=== PATIENT | female | born 1950 | race Caucasian/White ===

== ENCOUNTER 2018-01-11 18:01 | Emergency (ER) | payer OTHER ==
[2018-01-11 18:06] VITALS: RESP 18
--- NOTE | 2018-01-11 18:44 | EDPHY ---
H & P Stated Complaint: NEURO/MEMORY DEFICITS SINCE SOMETIME BETWEEN 11-1330 Time Seen by Provider: 01/11/18 18:22 HPI/ROS: CHIEF COMPLAINT: Amnesia HISTORY OF PRESENT ILLNESS: The patient presents to the ED with the development of acute amnesia. She denies any associated acute headache, history of trauma, neck pain, numbness, weakness or difficulty with walking. The patient is accompanied by her who reports she has short-term memory loss over the events of the past 2-3 days and continues to have repetitive questioning. There has been no history of a recent illness, fall, stressful event or other precipitating situation according to her . The patient reports she has remote history of ocular migraines. She denies any vision loss currently. She denies any acute medical complaints. REVIEW OF SYSTEMS: A comprehensive 10 point review of systems is otherwise negative aside from elements mentioned in the history of present illness. Source: Patient, Family - Personal History Current Tetanus/Diphtheria Vaccine: Yes - Medical/Surgical History Hx Asthma: No Hx Chronic Respiratory Disease: No Hx Diabetes: No Hx Cardiac Disease: No Hx Renal Disease: No Hx Cirrhosis: No Hx Alcoholism: No Hx HIV/AIDS: No Hx Splenectomy or Spleen Trauma: No Other PMH: DENIES - Social History Smoking Status: Former smoker - Physical Exam Exam: General Appearance: Alert, no distress Eyes: Pupils equal and round no pallor or injection ENT, Mouth: Mucous membranes moist Respiratory: There are no retractions, lungs are clear to auscultation Cardiovascular: Regular rate and rhythm Gastrointestinal: Abdomen is soft and nontender, no masses, bowel sounds normal Neurological: A&O, normal motor function, normal sensory exam, normal cranial nerves, patient is unable to recall 3 objects after 2 min. She presents with symptoms consistent with TGA Skin: Warm and dry, no rashes Musculoskeletal: Neck is supple nontender Extremities: symmetrical, full range of motion Psychiatric: Patient is oriented X 3, there is no agitation Constitutional: Initial Vital Signs Temperature (C) 36.5 C 01/11/18 18:04 Heart Rate 66 01/11/18 18:04 Respiratory Rate 18 01/11/18 18:04 Blood Pressure 184/61 H 01/11/18 18:04 O2 Sat (%) 92 01/11/18 18:04 O2 Delivery Mode Room Air Allergies/Adverse Reactions: No Known Allergies Allergy (Unverified 01/11/18 18:04) Home Medications: Medication Instructions Recorded NK [No Known Home Meds] 01/11/18 Medical Decision Making - Diagnostics Imaging Results: Imaging Impressions Brain MRI 01/11/18 18:40 Impression: Mild atrophy and probable small vessel ischemic disease are noted. Nothing acute is identified. Results called and discussed with Foster Arboleda M.D. on 01/11/2018 at 20:06 ED Course/Re-evaluation: The patient presents to the ED with a clinical presentation consistent with transient global amnesia. Given her age in MRI of the brain was ordered which demonstrates no evidence of stroke or obvious other significant intracranial abnormality. The patient did undergo serial examinations in the ED. She continues to have a nonfocal neurologic examination aside from her ongoing amnesia. Her can safely observed the patient. They will be discharged home with customary aftercare instructions and return precautions. Ther are given the contact number of our on-call neurologist. Differential Diagnosis: Differential diagnosis considered includes transient global amnesia, migraine, stroke, MACHINE MOLDER SQUEEZE tumor - Data Points Laboratory Results: Laboratory Results 01/11/18 19:54 01/11/18 19:04 01/11/18 01/11/18 01/11/18 19:54 19:04 19:04 WBC 9.32 10^3/uL 10^3/uL REJ (3.80-9.50) RBC 4.94 10^6/uL 10^6/uL TNP (4.18-5.33) Hgb 15.2 g/dL g/dL TNP (12.6-16.3) Hct 43.6 % % TNP (38.0-47.0) MCV 88.3 fL fL TNP (81.5-99.8) MCH 30.8 pg pg TNP (27.9-34.1) MCHC 34.9 g/dL g/dL TNP (32.4-36.7) RDW 13.2 % % TNP (11.5-15.2) Plt Count 258 10^3/uL 10^3/uL TNP (150-400) MPV 9.5 fL fL TNP (8.7-11.7) Neut % (Auto) 67.3 % % TNP (39.3-74.2) Lymph % (Auto) 26.8 % % TNP (15.0-45.0) Piatt % (Auto) 4.7 % % TNP (4.5-13.0) Eos % (Auto) 0.5 % L % TNP (0.6-7.6) Baso % (Auto) 0.3 % % TNP (0.3-1.7) Nucleat RBC Rel Count 0.0 % % TNP (0.0-0.2) Absolute Neuts (auto) 6.26 10^3/uL 10^3/uL TNP (1.70-6.50) Absolute Lymphs (auto) 2.50 10^3/uL 10^3/uL TNP (1.00-3.00) Absolute Monos (auto) 0.44 10^3/uL 10^3/uL TNP (0.30-0.80) Absolute Eos (auto) 0.05 10^3/uL 10^3/uL TNP (0.03-0.40) Absolute Basos (auto) 0.03 10^3/uL 10^3/uL TNP (0.02-0.10) Absolute Nucleated RBC 0.00 10^3/uL 10^3/uL TNP (0-0.01) Immature Gran % 0.4 % % TNP (0.0-1.1) Immature Gran # 0.04 10^3/uL 10^3/uL TNP (0.00-0.10) Sodium 139 mEq/L mEq/L (135-145) Potassium 4.4 mEq/L mEq/L (3.5-5.2) Chloride 102 mEq/L mEq/L (97-110) Carbon Dioxide 25 mEq/l mEq/l (22-31) Anion Gap 12 mEq/L mEq/L (8-16) BUN 11 mg/dL mg/dL (7-23) Creatinine 0.6 mg/dL mg/dL (0.6-1.0) Estimated GFR > 60 Glucose 106 mg/dL H mg/dL (70-100) Calcium 10.2 mg/dL mg/dL (8.5-10.4) Departure - Departure Disposition: Home, Routine, Self-Care Clinical Impression: Amnesia, global, transient Condition: Good Instructions: Transient Global Amnesia (ED) Additional Instructions: 1. The [facility] web site has a very good informational page regarding transient global amnesia. 2. Return to the ED for the development of any new neurologic symptoms such as numbness, weakness, severe headache, slurred speech or difficulty walking. 3. You have been given the contact number of our on-call neurologist if you have symptoms which are persistent past 2 days Referrals: Topher Akers, [Medical Doctor] - As per Instructions
[2018-01-11 20:07] LABS: PLATELET COUNT 258 10^3/uL (150-400)
[2018-01-11 20:15] VITALS: BP 170/79; PULSE 56; TEMP 97.3; O2SAT 94
== END 2018-01-11 20:27 | disposition home or self-care (01) ==
DX: G45.4 Transient global amnesia (principal); Z87.891 Personal history of nicotine dependence